=== PATIENT | male | born 1985 | race Caucasian/White ===

== ENCOUNTER 2017-06-18 14:22 | Inpatient (IN) | payer OTHER ==
[~2017-06-18] VITALS: Ht 170.2 cm; Wt 56.5 kg
[2017-06-18] VITALS (10 sets, daily range): BP systolic 105–120; BP diastolic 60–78; PULSE 63–82; RESP 16–18; TEMP 98.4; O2SAT 98–100
[~2017-06-18 14:22] MED LIST: LEVE500 PO
[2017-06-18] MEDS ORDERED: IOHEXOL 350 MG/ML 10 ML VIAL (for RAD DIAG) IVCONTRAST ONE (14:23)
[2017-06-18] MEDS ORDERED: DIPHTH/TETANUS/ACEL PERTUSSIS (BOOSTER) 0.5 ML VIAL/PFS IM ONE ×2 (14:36→15:07)
[2017-06-18] MEDS ORDERED: ceFAZolin 2 GM PREMIX 50 ML ONE (14:36)
[2017-06-18] MEDS ORDERED: LIDOCAINE HCL 1% PF 30 ML VIAL ONE (14:36)
[2017-06-18 14:54] LABS: AUTOMATED NEUTROPHIL # 11.3 TH/MM3 (1.8-7.7); BASOPHIL # 0.1 TH/MM3 (0-0.2); BASOPHIL % 0.4 % (0.0-2.0); EOSINOPHIL # 0.1 TH/MM3 (0-0.4); EOSINOPHIL % 0.7 % (0.0-4.0); HEMATOCRIT 36.8 % (39.0-51.0); HEMO FLAGS DIFF FINAL; LYMPH % 18.2 % (9.0-44.0); LYMPHOCYTE # 2.8 TH/MM3 (1.0-4.8); MEAN CELL VOLUME 85.9 FL (80.0-100.0); MEAN CORPUSCULAR HEMOGLOBIN 28.6 PG (27.0-34.0); MEAN CORPUSCULAR HGB CONC 33.4 % (32.0-36.0); MONO % 7.1 % (0.0-8.0); NEUT % 73.6 % (16.0-70.0); PLATELET COUNT 359 TH/MM3 (150-450); RED BLOOD COUNT 4.29 MIL/MM3 (4.50-5.90); WHITE BLOOD COUNT 15.3 TH/MM3 (4.0-11.0)
[2017-06-18 15:05] LABS: APTT (PATIENT) 26.4 SEC (24.3-30.1); PROTHROMBIN TIME - PATIENT 11.4 SEC (9.8-11.6)
[2017-06-18 15:07] LABS: I-STAT POTASSIUM 3.3 MMOL/L (3.5-4.9); I-STAT SODIUM 137 MMOL/L (138-146)
--- NOTE | 2017-06-18 15:11 | PD.VS.CON ---
History of Present Illness Chief Complaint: stab wound R neck Consult Requested by: ED History of Present Illness Young man brought in as trauma alert with unknown mechanism R neck stab wound, concern for self-inflicted. Past/Family/Social History Past Medical History Unknown but per report IVDA Past Surgical History unknown Social History unknown Family History unknown Review of Systems ROS Limitations: Clinical Condition Physical Exam Neuro: responds to pain and moves arms appropriately HEENT: R neck with 2 lacerations and venous bleeding, stopped with cephalad pressure Neck: R neck lacerations that appear to be do to platysma and have venous bleeding - Dr. Gael calixto and ligated what appeared to be external jugular vein no swelling from neck, no apparent hematoma and no tracheal deviation Laboratory Tests Test 06/18/17 14:30 White Blood Count 15.3 Red Blood Count 4.29 Hemoglobin 12.3 Hematocrit 36.8 Mean Corpuscular Volume 85.9 Mean Corpuscular Hemoglobin 28.6 Mean Corpuscular Hemoglobin Concent 33.4 Red Cell Distribution Width 14.0 Platelet Count 359 Mean Platelet Volume 8.4 Neutrophils (%) (Auto) 73.6 Lymphocytes (%) (Auto) 18.2 Monocytes (%) (Auto) 7.1 Eosinophils (%) (Auto) 0.7 Basophils (%) (Auto) 0.4 Neutrophils # (Auto) 11.3 Lymphocytes # (Auto) 2.8 Monocytes # (Auto) 1.1 Eosinophils # (Auto) 0.1 Basophils # (Auto) 0.1 CBC Comment DIFF FINAL Differential Comment Prothrombin Time 11.4 Prothromb Time International Ratio 1.0 Activated Partial Thromboplast Time 26.4 Assessment and Plan Plan likely superficial neck wound, treated at bedside Needs CTA Neck to r/u carotid sheath injury If negative, no further w/u needed from vascular surgery standpoint. Eyal Lindo MD FACS RPVI roof plumber [facility] - Heart [facility] Vascular Surgery at [facility] [phone] Eyal Lindo MD Jun 18, 2017 15:11
--- NOTE | 2017-06-18 15:26 | PD ---
HPI Chief Complaint: Trauma (Alert) Time Seen by Provider: 14:45 Travel History International Travel<30 days: No Contact w/Intl Traveler<30days: No Traveled to known affect area: No History of Present Illness HPI Patient was brought in as a trauma alert level I due to penetrating wound to his neck which was self-inflicted. Present in the room prior to patient's arrival. Patient as per the paramedics used a razor blade to cut himself. He was hemodynamically stable on route with a GCS of 15. However when patient arrived in spite of him being awake he refuses to talk. Patient is an IV drug abuser. Vital signs and GCS remained stable. As per the paramedics there was significant amount of blood loss at the scene. Patient's clothes were covered and soaking and blood. [facility] Past Medical History Narrative Medical IV drug abuser. Otherwise unknown Allergies-Medications Comments Unknown Narrative Medication Unknown Review of Systems Except as stated in HPI: all other systems reviewed are Neg General / Constitutional: Positive: Other (neck laceration) Psychiatric: Positive: Suicidal Ideations, Substance Abuse Physical Exam Narrative GENERAL: Awake, refused to talk, mild distress SKIN: Focused skin assessment warm/dry. Significant amount of dried blood all over his anterior and posterior part of the torso. This was cleaned. No other lacerations noticed. HEAD: Atraumatic. Normocephalic. EYES: Pupils equal and round. No scleral icterus. No injection or drainage. ENT: No nasal bleeding or discharge. Mucous membranes pink and moist. NECK: Trachea midline. No JVD. 2 of 3 cm lacerations on the right side of the neck at zone 3 . Inferior laceration was actively bleeding with venous blood gushing out CARDIOVASCULAR: Regular rate and rhythm. No murmur appreciated. RESPIRATORY: No accessory muscle use. Clear to auscultation. Breath sounds equal bilaterally. GASTROINTESTINAL: Abdomen soft, non-tender, nondistended. Hepatic and splenic margins not palpable. MUSCULOSKELETAL: No obvious deformities. No clubbing. No cyanosis. No edema. NEUROLOGICAL: Awake and alert. No obvious cranial nerve deficits. Motor grossly within normal limits. Normal speech. PSYCHIATRIC: Appropriate mood and affect; insight and judgment normal. Data Data Last Documented VS Vital Signs Date Time Temp Pulse Resp B/P (MAP) Pulse Ox O2 Delivery O2 Flow Rate FiO2 06/18/17 15:49 67 18 106/64 (78) 100 Nasal Cannula 2.00 Orders Orders Type And Screen (06/18/17 14:30) Trauma Office Use Only (06/18/17 14:32) Cefazolin 2 Gm Premix (Ancef 2 Gm Premix (06/18/17 14:36) Sbjk-Hjn-Ejzleu (Booster) Inj (Boostrix (06/18/17 14:36) Lidocaine Pf 1% Inj (Xylocaine-Mpf 1% In (06/18/17 14:36) I-Stat Profile (06/18/17 14:25) I-Stat Creatinine (06/18/17 14:25) Complete Blood Count With Diff (06/18/17 14:25) Prothrombin Time / Inr (Pt) (06/18/17 14:25) Act Partial Throm Time (Ptt) (06/18/17 14:25) Iv Access Insert/Monitor (06/18/17 14:25) Ecg Monitoring (06/18/17 14:25) Oximetry (06/18/17 14:25) Oxygen Administration (06/18/17 14:25) Cta Neck W Iv Contrast W 3d (06/18/17 ) Iohexol 350 Inj (Omnipaque 350 Inj) (06/18/17 14:23) Tnmd-Zzj-Aebjhk (Booster) Inj (Boostrix (06/18/17 15:07) Psych Screen (06/18/17 15:49) Drug Screen, Random Urine (06/18/17 16:15) Alcohol (Ethanol) (06/18/17 16:15) Admit Order (Ed Use Only) (06/18/17 ) Special Diet Cook / Telemetry JOSE.Q8H (06/18/17 16:47) Diet Npo (06/18/17 Dinner) Activity Bed Rest (06/18/17 16:47) Notify Dr: Other (06/18/17 16:47) Labs Laboratory Tests Test 06/18/17 14:30 06/18/17 16:35 White Blood Count 15.3 TH/MM3 Red Blood Count 4.29 MIL/MM3 Hemoglobin 12.3 GM/DL Bedside Hemoglobin 12.2 G/DL Hematocrit 36.8 % Bedside Hematocrit 36.0 % Mean Corpuscular Volume 85.9 FL Mean Corpuscular Hemoglobin 28.6 PG Mean Corpuscular Hemoglobin Concent 33.4 % Red Cell Distribution Width 14.0 % Platelet Count 359 TH/MM3 Mean Platelet Volume 8.4 FL Neutrophils (%) (Auto) 73.6 % Lymphocytes (%) (Auto) 18.2 % Monocytes (%) (Auto) 7.1 % Eosinophils (%) (Auto) 0.7 % Basophils (%) (Auto) 0.4 % Neutrophils # (Auto) 11.3 TH/MM3 Lymphocytes # (Auto) 2.8 TH/MM3 Monocytes # (Auto) 1.1 TH/MM3 Eosinophils # (Auto) 0.1 TH/MM3 Basophils # (Auto) 0.1 TH/MM3 CBC Comment DIFF FINAL Differential Comment Prothrombin Time 11.4 SEC Prothromb Time International Ratio 1.0 RATIO Activated Partial Thromboplast Time 26.4 SEC Bedside Sodium 137 MMOL/L Bedside Potassium 3.3 MMOL/L Bedside Chloride 99 MMOL/L Bedside Blood Urea Nitrogen LESS THAN 3 MG/DL Bedside Creatinine 0.8 MG/DL Bedside Glucose 134 MG/DL [facility] Medical Screen Exam Complete: Yes Emergency Medical Condition: Yes Medical Record Reviewed: Yes EKG Prior to Arrival: Yes Differential Diagnosis Carotid laceration, external jugular laceration, internal jugular laceration Narrative Course 4:55 PM pressure was held at the laceration and I called the vascular surgeon Dr. Lindo. Trauma surgeon was also present in the room. Together they were. The bleeding EJ. Please refer to their notes. Patient was taken to CT for CT of the neck. Later I was called by the vascular surgeon to let me know that there were no other vascular injuries besides the one that was repaired. Carotid sheath was intact. Dr. Mayo team from trauma service cleared him. Due to the self-inflicted nature of the wound psych screen was requested. Psychiatrist Dr. Da Silva was here and he will admit the patient. Patient remained stable and medically cleared. Critical Care Narrative Aggregate critical care time was 30 minutes. Time to perform other separately billable procedures was not included in the critical care time. My time did not include minutes spent treating any other patients simultaneously or on activities that did not directly contribute to the patient's treatment. The services I provided to this patient were to treat and/or prevent clinically significant deterioration that could result in: Trauma alert, vascular injury to the neck I provided critical care services requiring my management, as noted below: Chart data review, documentation time, medication orders and management, vital sign assessments/reviewing monitor data, ordering and reviewing lab tests, ordering and interpreting/reviewing x-rays and diagnostic studies, care of the patient and discussion of the patient with the admitting physicians. Trauma Alert - Level One Trauma Alert Level One: Full trauma team activate, Patient evaluated, Trauma surgeon summoned Time Surgeon Summoned: 14:[address] Mayo, Dr. Da Silva, Dr. Lindo Diagnosis Diagnosis: Primary Impression: Suicide attempt Additional Impressions: Laceration of neck, complicated Qualified Codes: S11.91XA - Laceration without foreign body of unspecified part of neck, initial encounter Major depression Qualified Codes: F32.3 - Major depressive disorder, single episode, severe with psychotic features IV drug abuse Admitting Physician Requests: it June Maradiaga MD Jun 18, 2017 15:26
--- NOTE | 2017-06-18 15:27 | RADRPT ---
EXAM DATE/TIME: 06/18/2017 14:47 [place] COMPARISON: No previous studies available for comparison. INDICATIONS : Trauma alert. Right neck laceration. IV CONTRAST: 70 cc Omnipaque 350 (iohexol) IV RADIATION DOSE: 16.14 CTDIvol (mGy) MEDICAL HISTORY : Non-responsive. SURGICAL HISTORY : Non-responsive. ENCOUNTER: Initial ACUITY: 1 day PAIN SCALE: Non-responsive LOCATION: Right neck Elevated flow velocities and ICA/CCA ratios have been found to correlate with increased degrees of vessel stenosis, calculated as percentage of diameter relative to a normal segment of distal ICA/CCA. TECHNIQUE: Volumetric scanning was performed using a multirow detector CT scanner. The data was post processed with a variety of visualization algorithms including full-volume maximum intensity projection, multip lanar sliding thin-slab reformation, curved-planar reformation, and surface-rendering techniques. Us ing automated exposure control and adjustment of the mA and/or kV according to patient size, radiatio n dose was kept as low as reasonably achievable to obtain optimal diagnostic quality images. DICOM f ormat image data is available electronically for review and comparison. FINDINGS: AORTIC ARCH: There is a three-vessel origin of the great vessels from the aorta. No evidence of ostial narrowing. RIGHT CAROTID: The common carotid artery is intact. The carotid bulb has a normal configuration without ulceration o r narrowing. The internal carotid artery lumen is smooth without stenosis. The external carotid remington ry is intact. No soft tissue neck hematoma seen. LEFT CAROTID: The common carotid artery is intact. The carotid bulb has a normal configuration without ulceration or narrowing. The internal carotid artery lumen is smooth without stenosis. The external carotid ar cherie is intact. No soft tissue neck hematoma seen. VERTEBRALS: The vertebral arteries have a symmetric diameter. No stenotic lesions are seen. The findings were discussed by telephone with the trauma surgeon. CONCLUSION: Unremarkable CTA of the carotids. Nathan Berry MD on June 18, 2017 at 15:22 Board Certified Radiologist. This report was verified electronically.
--- NOTE | 2017-06-18 16:55 | PD ---
Physical Exam Date Seen by Provider: Jun 18, 2017 Time Seen by Provider: 16:54 Data Data Last Documented VS Vital Signs Date Time Temp Pulse Resp B/P (MAP) Pulse Ox O2 Delivery O2 Flow Rate FiO2 06/18/17 18:19 65 18 112/67 (82) 98 Room Air 06/18/17 15:49 2.00 Orders Orders Type And Screen (06/18/17 14:30) Trauma Office Use Only (06/18/17 14:32) Cefazolin 2 Gm Premix (Ancef 2 Gm Premix (06/18/17 14:36) Jsrh-Cgj-Genhjh (Booster) Inj (Boostrix (06/18/17 14:36) Lidocaine Pf 1% Inj (Xylocaine-Mpf 1% In (06/18/17 14:36) I-Stat Profile (06/18/17 14:25) I-Stat Creatinine (06/18/17 14:25) Complete Blood Count With Diff (06/18/17 14:25) Prothrombin Time / Inr (Pt) (06/18/17 14:25) Act Partial Throm Time (Ptt) (06/18/17 14:25) Iv Access Insert/Monitor (06/18/17 14:25) Ecg Monitoring (06/18/17 14:25) Oximetry (06/18/17 14:25) Oxygen Administration (06/18/17 14:25) Cta Neck W Iv Contrast W 3d (06/18/17 ) Iohexol 350 Inj (Omnipaque 350 Inj) (06/18/17 14:23) Axce-Uri-Tdwtnw (Booster) Inj (Boostrix (06/18/17 15:07) Psych Screen (06/18/17 15:49) Drug Screen, Random Urine (06/18/17 16:15) Alcohol (Ethanol) (06/18/17 16:15) Lidocaine 1% Inj (Xylocaine 1% Inj) (06/18/17 17:00) Lidocaine 1% Inj (50 Ml) (Xylocaine 1% I (06/18/17 18:20) Labs Laboratory Tests Test 06/18/17 14:30 06/18/17 16:35 White Blood Count 15.3 TH/MM3 Red Blood Count 4.29 MIL/MM3 Hemoglobin 12.3 GM/DL Bedside Hemoglobin 12.2 G/DL Hematocrit 36.8 % Bedside Hematocrit 36.0 % Mean Corpuscular Volume 85.9 FL Mean Corpuscular Hemoglobin 28.6 PG Mean Corpuscular Hemoglobin Concent 33.4 % Red Cell Distribution Width 14.0 % Platelet Count 359 TH/MM3 Mean Platelet Volume 8.4 FL Neutrophils (%) (Auto) 73.6 % Lymphocytes (%) (Auto) 18.2 % Monocytes (%) (Auto) 7.1 % Eosinophils (%) (Auto) 0.7 % Basophils (%) (Auto) 0.4 % Neutrophils # (Auto) 11.3 TH/MM3 Lymphocytes # (Auto) 2.8 TH/MM3 Monocytes # (Auto) 1.1 TH/MM3 Eosinophils # (Auto) 0.1 TH/MM3 Basophils # (Auto) 0.1 TH/MM3 CBC Comment DIFF FINAL Differential Comment Prothrombin Time 11.4 SEC Prothromb Time International Ratio 1.0 RATIO Activated Partial Thromboplast Time 26.4 SEC Bedside Sodium 137 MMOL/L Bedside Potassium 3.3 MMOL/L Bedside Chloride 99 MMOL/L Bedside Blood Urea Nitrogen LESS THAN 3 MG/DL Bedside Creatinine 0.8 MG/DL Bedside Glucose 134 MG/DL Urine Opiates Screen NEG Urine Barbiturates Screen NEG Urine Amphetamines Screen NEG Urine Benzodiazepines Screen NEG Urine Cocaine Screen POS Urine Cannabinoids Screen NEG MDM Supervised Visit with HIPOLITO: No Narrative Course I was asked to evaluate this patient's anterior neck laceration. The patient was initially seen by Dr. Maradiaga. Please see her note for full H& P. On my exam patient has a right 2 cm laceration on the anterior lateral aspect of the neck. This is superior to his more serious neck laceration. Laceration repair was performed. Please see my procedure note for details. Dr. Maradiaga retains care of this patient. Please see her note for disposition. Procedures Procedure Narrative LACERATION LOCATION: Right anterior neck LENGTH: 2 cm NUMBER OF STITCHES/PHI: 3 REPAIR: The area of the laceration was prepped with Betadine and sterilely draped. The laceration was infiltrated with 1% lidocaine. The wound was copiously irrigated and explored without evidence of foreign body, tendon injury or neurovascular injury. The wound was closed using 4-0 Prolene. This was a single layer repair. A sterile dressing was applied. The patient was advised to keep the dressing clean and dry. Patient tolerated the procedure well. Sally Torres Jun 18, 2017 16:55
[2017-06-18] MEDS ORDERED: LIDOCAINE HCL 1% 30 ML VIAL INFIL ONE (17:00)
--- NOTE | 2017-06-18 18:01 | MB ---
cc: LUCI DILLON Trauma Alert DATE OF CONSULTATION: 06/18/2017 REASON FOR CONSULTATION: HISTORY This is a patient who was brought in as a trauma alert after self-inflicted cutting of the patient's right neck. He, by report, had a lot of bleeding at the scene. On my arrival, the patient was on a stretcher, noncommunicating, not answering any questions. According to the nurse, received a report that the patient is an IV drug user who sustained a self-inflicted cutting of the neck. All history and review of systems is unobtainable. PHYSICAL EXAMINATION: On exam the patient has two lacerations to his right neck, approximately 2 cm in length. He has bleeding from the inferior laceration, that appeared to be a superficial vein likely the external jugular. This was controlled, ligated with 3-0 Vicryl sutures. Once this was done there was no further bleeding. There was no crepitus in the neck, no swelling in the neck. His trachea was midline. Respirations clear. CARDIOVASCULAR: Regular. GASTROINTESTINAL: Soft, nontender. MUSCULOSKELETAL: No deformities. BACK: No stepoffs. No signs of trauma. CTA of the neck was negative. ASSESSMENT This is a patient who sustained a self-inflicted laceration to his neck with injury to the external jugular. This was ligated in the trauma bay by myself with . ____ assistance. The patient had no other traumatic injury. The patient can be evaluated by psychiatry. MD SHARI Huertas/ZAHIDA /4:26 PM /5:42 PM
[2017-06-18] MEDS ORDERED: LIDOCAINE HCL 1% 50 ML VIAL ONE (18:20)
[2017-06-18] MEDS: REMOVE OLD NICOTINE PATCH T-DERMAL SCH (20:40)
[2017-06-18] MEDS ORDERED: ALUMINUM/MAGNESIUM/SIMETH 30 ML CUP PO PRN (20:45)
[2017-06-18] MEDS ORDERED: MAGNESIUM HYDROXIDE SUSP 30 ML CUP PO PRN (20:45)
[2017-06-18] MEDS ORDERED: diphenhydrAMINE HCL 50 MG/ML VIAL - HS PRN IM (20:45)
[2017-06-18] MEDS: hydrOXYzine HCL 50 MG TAB PO PRN (21:56)
[2017-06-18] MEDS: ACETAMINOPHEN 325 MG TAB PO PRN (21:57)
[2017-06-18] MEDS: diphenhydrAMINE HCL 50 MG CAP - HS PRN PO (21:57)
[2017-06-19 06:17] VITALS: BP 101/70; PULSE 69; RESP 17; TEMP 98.1; O2SAT 100
[2017-06-19] MEDS: NICOTINE 21 MG/24 HR PATCH T-DERMAL SCH (08:01)
[2017-06-19] MEDS: hydrOXYzine HCL 50 MG TAB PO PRN ×2 (10:20→20:28)
[2017-06-19] MEDS: ACETAMINOPHEN 325 MG TAB PO PRN (10:20)
[2017-06-19] MEDS ORDERED: POTASSIUM CHLORIDE 20 MEQ PWD PACKET PO ONE (10:30)
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
[2017-06-19] MEDS ORDERED: ONDANSETRON ODT 4 MG TAB PO PRN (12:00)
[2017-06-19] MEDS ORDERED: LOPERAMIDE HCL 2 MG CAP PO PRN (12:00)
[2017-06-19] MEDS ORDERED: cloNIDine HCL 0.1 MG TAB PO PRN (12:00)
[2017-06-19 12:42] LABS: ANION GAP 6 MEQ/L (5-15); BICARBONATE 25.4 MEQ/L (21.0-32.0); BLOOD UREA NITROGEN 7 MG/DL (7-18); CHLORIDE 111 MEQ/L (98-107); GLOMERULAR FILTRATION RATE 111 ML/MIN (>89); POTASSIUM 3.9 MEQ/L (3.5-5.1); SODIUM (NA) 142 MEQ/L (136-145)
[2017-06-19 12:44] LABS: LDL CHOLESTEROL 43 MG/DL (0-99)
[2017-06-19] MEDS: levETIRAcetam 500 MG TAB PO SCH ×2 (14:00→20:29)
[2017-06-19] MEDS: BACLOFEN 10 MG TAB PO SCH ×2 (14:00→20:44)
[2017-06-19 16:03] LABS: HEMOGLOBIN A1a 1.2 %; HEMOGLOBIN A1b 1.4 %; HEMOGLOBIN Ao 85.9 %; HEMOGLOBIN LA1C 2.2 %; HEMOGLOBIN P3 3.6 %
[2017-06-19 17:00] VITALS: BP 90/58; PULSE 98; RESP 18; TEMP 98.8; O2SAT 98
--- NOTE | 2017-06-19 17:21 | PD.WCN.NOT ---
Wound Consult Description: Received consult from Doctor Neville for evaluation of R neck wound management Communicated with: LUCAS Encarnacion [facility] [address] [facility], who will relay recommendations to Doctor Neville Recommendation: Ok to apply bacitracin as ordered starting to night and leave open to air Additional Information: Patient seen on [facility] psych unit for evaluation of R neck wound.Two wounds are noted to R anterior neck.Wounds presents as 2 lacerations that are well approximated with ~5 sutures for each laceration. Lacerations and sutures appear clean dry and intact.Periwounds are unremarkable. Doctor Neville ordered bacitracin to neck wounds starting tonight. Ok to continue with bacitracin and leave wounds open to air. Tracey Rodriguez [facility] Jun 19, 2017 17:21
[2017-06-19] MEDS ORDERED: levETIRAcetam 500 MG TAB PO ONE (17:30)
[2017-06-19] MEDS: LURASIDONE 80 MG TAB PO SCH (17:34)
--- NOTE | 2017-06-19 17:56 | PD.CONS ---
[facility] By [facility] Physician Unknown Diagnoses: History of Present Illness Mr. Nassar is a 32 year old male admitted to the psychiatry care center here regarding depression. There are freshly repaired lacerations at his right middle neck anteriorly. He also has a past history of seizure disorder since childhood and reports that he takes Keppra 500mg BID for this. No other medications are taken regularly. No other reported past medical history. He had a jaw surgery related to a fracture when he was younger. No other complaints. Review of Systems Constitutional: DENIES: Fatigue, Fever Eyes: DENIES: Blurred vision, Diplopia, Eye inflammation Ears, nose, mouth, throat: DENIES: Tinnitus, Hearing loss, Vertigo Respiratory: DENIES: Apneas, Cough, Wheezing, Shortness of breath Cardiovascular: DENIES: Chest pain, Palpitations, Syncope Gastrointestinal: DENIES: Abdominal pain, Black stools, Bloody stools Musculoskeletal: DENIES: Joint pain, Muscle aches, Stiffness Integumentary: DENIES: Abnormal pigmentation, Nail changes, Pruritus, Rash Hematologic/lymphatic: DENIES: Bruising, Lymphadenopathy Immunologic/allergic: DENIES: Eczema, Urticaria Neurologic: DENIES: Abnormal gait, Headache, Paresthesias Psychiatric: COMPLAINS OF: Depression, DENIES: Anxiety, Confusion Past Family Social History Allergies: Coded Allergies: cephalexin (Verified Allergy, Unknown, 06/18/17) Per Historical records. codeine (Verified Allergy, Unknown, 06/18/17) Per Historical records. Past Medical History Seizure Disorder Past Surgical History Jaw fracture repair Reported Medications Keppra 500 mg BID Active Ordered Medications Administered Medications Medications (Trade) Dose Ordered Sig/Claudia Route PRN Reason Start Time Stop Time Status Last Admin Dose Admin Hydroxyzine HCl (Atarax) 50 mg Q6H PRN PO ANXIETY 06/18/17 20:45 06/19/17 10:20 Diphenhydramine HCl (Benadryl) 50 mg HS PRN PO INSOMNIA 06/18/17 20:45 06/18/17 21:57 Acetaminophen (Tylenol) 650 mg Q4H PRN PO Pain 1-5 or Temp >101F 06/18/17 20:45 06/19/17 10:20 Nicotine (Habitrol 21 Mg Patch.24 Hr) 1 patch DAILY T-DERMAL 06/19/17 09:00 06/19/17 08:01 Levetriacetam (Keppra) 500 mg Q12HR PO 06/19/17 12:00 06/19/17 14:00 Baclofen (Lioresal) 10 mg DAILY@0900,1300,2100 PO 06/19/17 13:00 06/19/17 14:00 Clonidine (Catapres) 0.1 mg Q8HR PRN PO Opiate withdrawal 06/19/17 12:00 06/19/17 14:00 Lurasidone HCl (Latuda) 80 mg WITH DINNER PO 06/19/17 18:00 06/19/17 17:34 Family History No known positive family history Social History Cocaine abuse No reported alcohol abuse No reported nicotine abuse Physical Exam Vital Signs Vital Signs Date Time Temp Pulse Resp B/P (MAP) Pulse Ox O2 Delivery O2 Flow Rate FiO2 06/19/17 17:00 98.8 98 18 90/58 (69) 98 06/19/17 06:17 98.1 69 17 101/70 (80) 100 06/18/17 20:00 98.4 82 17 119/71 (87) 100 06/18/17 19:45 06/18/17 19:44 80 16 117/78 (91) 98 Room Air 06/18/17 19:14 72 16 120/60 (80) 99 Room Air 06/18/17 18:19 65 18 112/67 (82) 98 Room Air 06/18/17 18:00 67 18 105/61 (76) 100 Room Air Physical Exam GENERAL: NAD, A&Ox3 SKIN: Warm and dry. HEAD: Normocephalic. EYES: No scleral icterus. No injection or drainage. NECK: Supple, trachea midline. No JVD or lymphadenopathy. Repaired lacerations at anterior neck, right. CARDIOVASCULAR: Regular rate and rhythm without murmurs, gallops, or rubs. RESPIRATORY: Breath sounds equal bilaterally. No accessory muscle use. GASTROINTESTINAL: Abdomen soft, non-tender, nondistended. MUSCULOSKELETAL: No cyanosis, or edema. BACK: Nontender without obvious deformity. No CVA tenderness. Laboratory Laboratory Tests Test 06/19/17 11:54 Blood Urea Nitrogen 7 Creatinine 0.80 Random Glucose 117 Calcium Level 8.2 Sodium Level 142 Potassium Level 3.9 Chloride Level 111 Carbon Dioxide Level 25.4 Anion Gap 6 Estimat Glomerular Filtration Rate 111 Hemoglobin A1c 5.4 Triglycerides Level 181 Cholesterol Level 108 LDL Cholesterol 43 HDL Cholesterol 29.0 Cholesterol/HDL Ratio 3.72 Result Diagram: 06/18/17 1430 06/19/17 1154 Imaging Last Impressions Neck CTA 06/18/17 0000 Signed Impressions: Service Date/Time: Sunday, June 18, 2017 14:47 - CONCLUSION: Unremarkable CTA of the carotids. Nathan Berry MD Assessment and Plan Problem List: (1) Major depression ICD Code: F32.9 - Major depressive disorder, single episode, unspecified Status: Acute (2) Suicide attempt ICD Code: T14.91XA - Suicide attempt, initial encounter Status: Acute (3) Laceration of neck, complicated ICD Code: S11.91XA - Laceration without foreign body of unspecified part of neck, initial encounter Status: Acute (4) IV drug abuse ICD Code: F19.10 - Other psychoactive substance abuse, uncomplicated Status: Acute (5) Adjustment disorder with mixed disturbance of emotions and conduct ICD Code: F43.25 - Adjustment disorder with mixed disturbance of emotions and conduct (6) Polysubstance abuse ICD Code: F19.10 - Other psychoactive substance abuse, uncomplicated Assessment and Plan Assessment and Plan 32 year old male admitted secondary to Depression with unsuccessful suicide attempt of anterior neck laceration. Depression, Major Psychiatry following and will manage Anterior Neck Laceration Follow clinically for now Suture removal at about 14 days, likely to occur after discharge Seizure disorder Resume Keppra 500mg BID Follow clinically for seizure Hyperlipidemia May be reactive and transient Repeat in 3 days or more Leukocytosis May be reactive rather than infectious Follow CBC DVT Prophylaxis Patient ambulatory, none needed Problem Qualifiers (1) Major depression: Qualified Codes: F32.3 - Major depressive disorder, single episode, severe with psychotic features (2) Laceration of neck, complicated: Qualified Codes: S11.91XA - Laceration without foreign body of unspecified part of neck, initial encounter Chapo Self MD Jun 19, 2017 17:56
[2017-06-19] MEDS: diphenhydrAMINE HCL 50 MG CAP - HS PRN PO (20:29)
[2017-06-19] MEDS: REMOVE OLD NICOTINE PATCH T-DERMAL SCH (20:44)
[2017-06-19] MEDS: BACITRACIN TOP OINT 15 GM TUBE TOPICAL SCH (20:45)
[2017-06-19] MEDS ORDERED: levETIRAcetam 500 MG TAB PO SCH (21:00)
[2017-06-20 06:08] VITALS: BP 100/58; PULSE 71; RESP 16; TEMP 98.1; O2SAT 98
[2017-06-20] MEDS: NICOTINE 21 MG/24 HR PATCH T-DERMAL SCH (08:15)
[2017-06-20] MEDS: levETIRAcetam 500 MG TAB PO SCH ×2 (08:15→19:56)
[2017-06-20] MEDS: BACITRACIN TOP OINT 15 GM TUBE TOPICAL SCH ×2 (08:16→20:11)
[2017-06-20] MEDS: BACLOFEN 10 MG TAB PO SCH ×4 (08:16→19:57)
[2017-06-20] MEDS: hydrOXYzine HCL 50 MG TAB PO PRN ×2 (09:10→21:26)
[2017-06-20 09:15] VITALS: BP 112/62; PULSE 127
[2017-06-20] MEDS: ACETAMINOPHEN 325 MG TAB PO PRN (10:02)
[2017-06-20 11:01] LABS: AUTOMATED NEUTROPHIL # 6.4 TH/MM3 (1.8-7.7); BASOPHIL # 0.1 TH/MM3 (0-0.2); BASOPHIL % 0.7 % (0.0-2.0); EOSINOPHIL # 0.1 TH/MM3 (0-0.4); EOSINOPHIL % 1.1 % (0.0-4.0); HEMATOCRIT 32.2 % (39.0-51.0); HEMO FLAGS DIFF FINAL; LYMPH % 27.7 % (9.0-44.0); LYMPHOCYTE # 2.8 TH/MM3 (1.0-4.8); MEAN CORPUSCULAR HEMOGLOBIN 30.3 PG (27.0-34.0); MEAN CORPUSCULAR HGB CONC 34.8 % (32.0-36.0); MONO % 6.4 % (0.0-8.0); NEUT % 64.1 % (16.0-70.0); PLATELET COUNT 304 TH/MM3 (150-450); RED CELL DISTRIBUTION WIDTH 14.3 % (11.6-17.2)
[2017-06-20 11:29] LABS: BICARBONATE 26.3 MEQ/L (21.0-32.0); POTASSIUM 4.5 MEQ/L (3.5-5.1)
--- NOTE | 2017-06-20 11:59 | HHI.PYPN ---
Subjective Chief Complaint: Suicide attempt by cutting Remarks Patient seen and examined with nurse. Chart reviewed. Case discussed with nursing staff. No behavioral issues overnight. Nurse does note patient is seeking for opiates. Techs reported to nursing that patient may have passed some blood per rectum, although patient voices no such complaints. On my examination today, patient denies ongoing SI. He complains of cold sweats and hyperalgesia but reports no other withdrawal symptoms. Affect remains a little bit dysphoric, although he does smile at intervals. We discussed nonnarcotic adjuvant medications for the management of pain. The patient does report symptoms consistent with neuropathic component to pain including paresthesias over the affected area. We discuss possible addition of Cymbalta or gabapentin , and after discussion of the risks and benefits, the patient is interested in a trial of gabapentin. Denies side effects from medications. No physical complaints. Discharge focused. Review of Systems ROS Limitations: Poor Historian Except as stated in HPI: all other systems reviewed are Neg Mental Status Examination Appearance: Appropriate Consciousness: Alert Orientation: x4 Motor Activity: Normal gait, Other (no motor abnormalities noted) Speech: Unremarkable Language: Adequate Fund of Knowledge: Adequate Attention and Concentration: Adequate Memory: Unremarkable (intact on clinical exam) Mood: Other (dysphoric, perhaps a little less so today) Affect: Other (more full and reactive) Thought Process & Associations: Logical, Linear Hallucination Type: None Delusion Type: None Suicidal Ideation: No Suicidal Plan: No Suicidal Intention: No Homicidal Ideation: No Homicidal Plan: No Homicidal Intention: No Insight: Poor Judgment: Poor Mental Status Exam Remarks No objective signs of opiate withdrawal. No signs of GABAergic withdrawal. Results Labs Test 06/20/17 10:18 White Blood Count 10.0 TH/MM3 Red Blood Count 3.70 MIL/MM3 Hemoglobin 11.2 GM/DL Hematocrit 32.2 % Mean Corpuscular Volume 87.0 FL Mean Corpuscular Hemoglobin 30.3 PG Mean Corpuscular Hemoglobin Concent 34.8 % Red Cell Distribution Width 14.3 % Platelet Count 304 TH/MM3 Mean Platelet Volume 8.3 FL Neutrophils (%) (Auto) 64.1 % Lymphocytes (%) (Auto) 27.7 % Monocytes (%) (Auto) 6.4 % Eosinophils (%) (Auto) 1.1 % Basophils (%) (Auto) 0.7 % Neutrophils # (Auto) 6.4 TH/MM3 Lymphocytes # (Auto) 2.8 TH/MM3 Monocytes # (Auto) 0.6 TH/MM3 Eosinophils # (Auto) 0.1 TH/MM3 Basophils # (Auto) 0.1 TH/MM3 CBC Comment DIFF FINAL Differential Comment Blood Urea Nitrogen 7 MG/DL Creatinine 0.87 MG/DL Random Glucose 108 MG/DL Calcium Level 8.4 MG/DL Sodium Level 141 MEQ/L Potassium Level 4.5 MEQ/L Chloride Level 108 MEQ/L Carbon Dioxide Level 26.3 MEQ/L Anion Gap 7 MEQ/L Estimat Glomerular Filtration Rate 101 ML/MIN Labs reviewed. Leukocytosis resolved. Mild interval worsening in normocytic anemia. BMP unremarkable. TSH within normal limits. Vitals/IOs Vital Signs Date Time Temp Pulse Resp B/P (MAP) Pulse Ox O2 Delivery O2 Flow Rate FiO2 06/20/17 09:15 127 112/62 (79) 06/20/17 06:08 98.1 16 98 06/18/17 19:44 Room Air 06/18/17 15:49 2.00 Assessment & Plan Problem List: (1) Adjustment disorder with mixed disturbance of emotions and conduct ICD Codes: F43.25 - Adjustment disorder with mixed disturbance of emotions and conduct (2) Polysubstance abuse ICD Codes: F19.10 - Other psychoactive substance abuse, uncomplicated Assessment & Plan Add gabapentin for neuropathic component of patient's complaints of pain. Since the patient is on several other [employer] depressants, I will keep the dose low to start, 100 mg 3 times a day. Continue Latuda as ordered. Titrate baclofen to 4 times daily for reported opiate withdrawal symptoms. Continue as needed medications for the management of opiate withdrawal. Check fecal occult blood and iron studies and trend CBC. I suspect that patient's tachycardia is related to mild withdrawal, but we'll check EKG. Hospitalist input noted and appreciated. Wound care and put noted and appreciated. Continue to monitor on the inpatient unit. Continue other medications and care as ordered. Justification for Cont. Inpt. Monitoring for ongoing impairments in safety, so far none noted. Discharge Planning I have strongly recommended that the patient allow us to refer him for intensive chemical dependency treatment on discharge, but he is unfortunately pre-contemplative with regards to changing his pattern of use and is disinterested in any sort of chemical dependency treatment at this time, even though I have explained to him that substance use is likely a large, albeit chronic component of his ongoing risk for self-harm. Case discussed with counselor who will obtain collateral information. If the patient insists on discharge tomorrow, as he says he may do, it is not clear that he meets criteria for involuntary psychiatric hospitalization at this time, although it would be my recommendation that he stay for additional stabilization. Request HC Surrog/Guard Advoc?: No Richi Neville MD Jun 20, 2017 11:59
[2017-06-20] MEDS: GABAPENTIN 100 MG CAP PO SCH ×2 (12:50→18:20)
[2017-06-20] MEDS: LURASIDONE 80 MG TAB PO SCH (17:07)
[2017-06-20 18:15] VITALS: BP 101/58; PULSE 87; RESP 18; TEMP 98.8; O2SAT 100
[2017-06-20 18:18] LABS: TRANSFERRIN IRON PROFILE 182 MG/DL (200-360)
[2017-06-20 18:21] LABS: FERRITIN 151 NG/ML (26-388)
[2017-06-20] MEDS: REMOVE OLD NICOTINE PATCH T-DERMAL SCH (20:12)
[2017-06-21 05:54] VITALS: BP 110/64; PULSE 75; RESP 18; TEMP 98.1; O2SAT 97
[2017-06-21] MEDS: BACITRACIN TOP OINT 15 GM TUBE TOPICAL SCH (09:00)
[2017-06-21] MEDS: BACLOFEN 10 MG TAB PO SCH ×2 (09:49→13:00)
[2017-06-21] MEDS: levETIRAcetam 500 MG TAB PO SCH (09:49)
[2017-06-21] MEDS: NICOTINE 21 MG/24 HR PATCH T-DERMAL SCH (09:49)
[2017-06-21] MEDS: GABAPENTIN 100 MG CAP PO SCH ×2 (09:49→13:00)
[2017-06-21] MEDS: hydrOXYzine HCL 50 MG TAB PO PRN (09:50)
[2017-06-21 09:51] LABS: AUTOMATED NEUTROPHIL # 5.3 TH/MM3 (1.8-7.7); BASOPHIL # 0.1 TH/MM3 (0-0.2); BASOPHIL % 1.1 % (0.0-2.0); EOSINOPHIL # 0.1 TH/MM3 (0-0.4); EOSINOPHIL % 1.2 % (0.0-4.0); HEMATOCRIT 33.9 % (39.0-51.0); HEMO FLAGS DIFF FINAL; LYMPH % 32.9 % (9.0-44.0); LYMPHOCYTE # 2.9 TH/MM3 (1.0-4.8); MEAN CELL VOLUME 86.4 FL (80.0-100.0); MEAN CORPUSCULAR HEMOGLOBIN 29.6 PG (27.0-34.0); MEAN CORPUSCULAR HGB CONC 34.2 % (32.0-36.0); MONO % 5.5 % (0.0-8.0); NEUT % 59.3 % (16.0-70.0); PLATELET COUNT 328 TH/MM3 (150-450); RED BLOOD COUNT 3.92 MIL/MM3 (4.50-5.90); RED CELL DISTRIBUTION WIDTH 14.2 % (11.6-17.2); WHITE BLOOD COUNT 8.9 TH/MM3 (4.0-11.0)
[2017-06-21 10:13] VITALS: BP 132/69; TEMP 98
[2017-06-21] MEDS ORDERED: GABA100C4 PO (10:34)
[2017-06-21] MEDS ORDERED: LEVE500 PO (10:34)
[2017-06-21] MEDS ORDERED: LURA80 PO (10:34)
[2017-06-21] MEDS ORDERED: BACI500O2 TOPICAL (10:34)
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
--- NOTE | 2017-06-21 22:02 | EKG ---
Date Performed: 06/20/2017 Time Performed: 18:12:47 PTAGE: 32 years EKG: Sinus rhythm POSSIBLE LEFT ATRIAL ENLARGEMENT BORDERLINE ECG NO PREVIOUS TRACING DOCTOR: Kenji Smith Interpretating Date/Time 06/21/2017 21:31:57
== END 2017-06-21 13:15 | disposition left against medical advice (07) | DRG 876 ==
LOC: NEPI 14:22 → NEDA 18:50 → MERGE 18:50 → EDBD 18:50 → H270 20:06
PROVIDERS: ADMIT Psychiatry & Neurology Psychiatry; ATTEND Psychiatry & Neurology Psychiatry
PROC: 0HQ4XZZ Repair Neck Skin, External Approach (ICD-10-PCS; principal; 2017-06-18)
PROC: 05QP0ZZ Repair Right External Jugular Vein, Open Approach (ICD-10-PCS; 2017-06-18)
DX: F43.25 Adjustment disorder with mixed disturbance of emotions and conduct (principal); S15.211A Minor laceration of right external jugular vein, initial encounter; F11.23 Opioid dependence with withdrawal; F20.9 Schizophrenia, unspecified; F19.14 Other psychoactive substance abuse with psychoactive substance-induced mood disorder; F14.10 Cocaine abuse, uncomplicated; F31.9 Bipolar disorder, unspecified; G89.29 Other chronic pain; M25.551 Pain in right hip; M79.604 Pain in right leg; Z91.5 Personal history of self-harm; Z81.8 Family history of other mental and behavioral disorders; S11.91XA Laceration without foreign body of unspecified part of neck, initial encounter; Y92.9 Unspecified place or not applicable; X78.1XXA Intentional self-harm by knife, initial encounter; Y93.89 Activity, other specified; G40.909 Epilepsy, unspecified, not intractable, without status epilepticus; E78.5 Hyperlipidemia, unspecified
CPT/HCPCS: 12001; 70498; 80048; 80061; 80307; 82435; 82565; 82728; 82947; 83036; 83540; 83550; 84132; 84295; 84443; 84520; 85025; 85610; 85730; 86850; 86900; 86901; 86920; 90471; 90715; 93005; 96365; 96376; 99291; G0390; J0690; Q0163; Q9967